=== PATIENT | female | born 1970 | race Two or more races ===

== ENCOUNTER 2021-08-03 10:30 | Emergency (ER) | payer SELFPAY ==
[~2021-08-03] VITALS: Ht 160 cm; Wt 79.8 kg
[2021-08-03] MEDS ORDERED: ONDANSETRON 4 MG/2 ML VIAL IV ONE (11:00)
[2021-08-03] MEDS ORDERED: IV NORMAL SALINE 1000 ML BAG IV ONE (11:00)
[2021-08-03] MEDS ORDERED: FAMOTIDINE. 20 MG/2 ML VIAL IV ONE ×2 (11:00→11:20)
--- NOTE | 2021-08-03 11:10 | NUR ---
EKG, saline lock, blood draw done. Pt taken via gurney to radiology by tech.
[2021-08-03 11:19] LABS: *BILIRUBIN,URIN NEGATIVE (NEGATIVE); *BLOOD, URINE NEGATIVE (NEGATIVE); *COLOR,URINE YELLOW (YELLOW); *KETONES,URINE NEGATIVE (NEGATIVE); *UROBILINOGEN,URINE 0.2 E.U./dl (NORMAL); LEUKOCYTE ESTERASE ,URINE 1+ (NEGATIVE); NITRITE, URINE NEGATIVE (NEGATIVE); UGLUCOSE NEGATIVE (NEGATIVE)
[2021-08-03] MEDS ORDERED: ONDANSETRON 4 MG/2 ML VIAL ONE (11:19)
[2021-08-03 11:23] LABS: HEMATOCRIT 41.6 % (31.2-41.9); MEAN CORPUSCULAR HEMOGLOBIN 32.8 uug (24.7-32.8); MEAN CORPUSCULAR VOLUME 95.1 fL (75.5-95.3); PLATELET COUNT (AUTO) 240 K/uL (179-408)
[2021-08-03 11:27] LABS: BILIRUBIN,DIRECT 0.1 mg/dL (0.0-0.2); BILIRUBIN,TOTAL 0.7 mg/dL (0.2-1.0); CREATININE 0.8 mg/dL (0.6-1.3); POTASSIUM 3.8 mmol/L (3.5-5.1); TOTAL PROTEIN, SERUM 8.3 g/dL (6.4-8.2)
--- NOTE | 2021-08-03 11:30 | NUR ---
Pt brought back to the dept. IV fluids and medication administered.
[2021-08-03 11:45] LABS: *CLARITY,URINE CLOUDY (CLEAR)
[2021-08-03] MEDS ORDERED: MECLIZINE HCL 25 MG TABLET PO ONE (11:45)
[2021-08-03 11:50] LABS: RBC,URINE NONE SEEN /HPF (0-3); SQUAMOUS EPITHELIAL CELL,UR MODERATE /HPF (NONE SEEN)
[2021-08-03] MEDS ORDERED: MECLIZINE HCL 25 MG TABLET ONE (11:50)
[2021-08-03 11:55] LABS: *URINE HCG, QUAL NEGATIVE (NEGATIVE); MUCUS,URINE MODERATE /LPF (0-FEW)
[2021-08-03 11:57] LABS: BACTERIA,URINE FEW /HPF (NONE SEEN)
--- NOTE | 2021-08-03 12:11 | NUR ---
Pt tolerated hydration Tx. Denies any adverse event from medication administration. States improvement in S/S.
[2021-08-03] MEDS ORDERED: MECL-159 PO (12:12)
[2021-08-03] MEDS ORDERED: ONDA4TAB11 PO (12:12)
--- NOTE | 2021-08-03 12:15 | NUR ---
Saline lock D/C, clear and intact. Patient discharged to home in stable condition. Written and verbal after care instructions given. Patient verbalizes understanding of instructions. Stressed follow up or return to ER for worsening s/s.
[2021-08-03 12:21] VITALS: BP 126/74
== END 2021-08-03 12:22 | disposition home or self-care (01) ==
LOC: ER 10:35
DX: R42 Dizziness and giddiness (principal); R11.2 Nausea with vomiting, unspecified; R10.9 Unspecified abdominal pain; R00.1 Bradycardia, unspecified
CPT/HCPCS: 36415; 74176; 80048; 80076; 81001; 83690; 84484; 84703; 85025; 87086; 93005; 96361; 96374; 96375; 99285; J2405; J3490; 70030-TC; A4663; J7030; J8597